=== PATIENT | male | born 1970 | race Caucasian/White ===

== ENCOUNTER 2025-03-18 06:10 | Observation (INO) | payer OTHER, SELFPAY ==
[2025-03-18 06:42] LABS: #Basophils 0.05 10x3/uL (0.0-0.2); #Eosinophils 0.50 10x3/uL (0.0-0.5); #Monocytes 1.29 10x3/uL (0.0-1.1); #Neutrophils 9.62 10x3/uL (1.5-8.4); %Basophils 0.4 % (0.0-2.0); %Eosinophils 3.7 % (0.0-6.0); %Lymphocytes 15.2 % (18.0-47.0); %Monocytes 9.5 % (0.0-10.0); %Neutrophils 70.8 % (40.0-75.0); Glucose, Urine (Dipstick) Normal (Negative); Hematocrit 43.2 % (38.8-50.0); Hemoglobin 14.5 g/dL (13.5-17.5); Leukocyte Negative (Negative); Mean Corpuscular Hemoglobin 29.2 pg (27.0-33.0); Mean Corpuscular Volume 86.9 fL (81.2-95.1); Platelet Count 263 10x3/uL (150-450); Protein, Urine (Dipstick) 15 mg/dl (Neg-Trace); Red Blood Cell (RBC) Count 4.97 10x6/uL (4.32-5.72); Specific Gravity, Urine 1.015 (1.005-1.030); White Blood Cell (WBC) Count 13.57 10x3/uL (3.5-10.5)
[2025-03-18 06:48] LABS: Bacteria/HPF None Seen HPF (None Seen); CAUTI Indications for Culture Dysuria,urgency,freq; RBC/HPF None Seen HPF (0-3); WBC/HPF 0-3 HPF (0-3)
[2025-03-18 06:49] LABS: Urine Culture Reflex No No
[2025-03-18 06:58] LABS: ALT (SGPT) 33 U/L (Less than 45); AST (SGOT) 30 U/L (11-34); Albumin 3.7 g/dL (3.1-4.5); Alkaline Phosphatase 88 U/L (40-110); Anion Gap 15 mmol/L (10-20); BUN (Urea Nitrogen) 15 mg/dL (8.4-25.7); Bilirubin, Total 0.5 mg/dL (0.3-1.2); Calc. Creatinine Clearance 0 mL/min (70-130); Calcium 8.5 mg/dL (7.8-10.44); Carbon Dioxide 23 mmol/L (22-29); Chloride 103 mmol/L (98-107); Globulin 4.3 g/dL (2.4-3.5); Glucose 123 mg/dL (70-105); Lipase 43 U/L (8-78); Potassium 4.4 mmol/L (3.5-5.1); Sodium 137 mmol/L (136-145)
[2025-03-18] MEDS ORDERED: Ondansetron PF 4 MG/2 ML Vial ONE (07:29)
[2025-03-18] MEDS ORDERED: Ondansetron PF 4 MG/2 ML Vial IVP PRN (10:28)
[2025-03-18] MEDS ORDERED: Electrolyte Replacement Protocol 1 EACH FS PRN (10:30)
[2025-03-18] MEDS ORDERED: Iopamidol 300 61% 100 ML VIAL FS ONE (13:18)
[2025-03-18 14:14] VITALS: BMI 31.9
[2025-03-18] MEDS: Acetaminophen 325 MG TAB PO PRN (15:08)
[2025-03-18] MEDS: Melatonin 3 MG TAB PO PRN (20:11)
[2025-03-19 05:00] LABS: #Basophils 0.04 10x3/uL (0.0-0.2); #Eosinophils 0.43 10x3/uL (0.0-0.5); #Monocytes 0.74 10x3/uL (0.0-1.1); #Neutrophils 5.83 10x3/uL (1.5-8.4); %Basophils 0.5 % (0.0-2.0); %Eosinophils 4.9 % (0.0-6.0); %Lymphocytes 19.3 % (18.0-47.0); %Monocytes 8.4 % (0.0-10.0); %Neutrophils 66.6 % (40.0-75.0); Hematocrit 37.9 % (38.8-50.0); Hemoglobin 12.8 g/dL (13.5-17.5); Mean Corpuscular Hemoglobin 29.8 pg (27.0-33.0); Mean Corpuscular Volume 88.3 fL (81.2-95.1); Platelet Count 260 10x3/uL (150-450); Red Blood Cell (RBC) Count 4.29 10x6/uL (4.32-5.72); White Blood Cell (WBC) Count 8.76 10x3/uL (3.5-10.5)
[2025-03-19 05:14] LABS: Anion Gap 13 mmol/L (10-20); BUN (Urea Nitrogen) 9 mg/dL (8.4-25.7); Calc. Creatinine Clearance 134 mL/min (70-130); Calcium 8.3 mg/dL (7.8-10.44); Carbon Dioxide 24 mmol/L (22-29); Chloride 105 mmol/L (98-107); Glucose 148 mg/dL (70-105); Magnesium 2.0 mg/dL (1.6-2.6); Potassium 4.0 mmol/L (3.5-5.1); Sodium 138 mmol/L (136-145)
[2025-03-19] MEDS: Enoxaparin 40 MG (0.4 mL) SYRINGE SC SCH (08:16)
[2025-03-19] MEDS: Magnesium 2 GM/50 ML(in water) 2 GM in Premix 1 BAG IVPB SCH (08:16)
[2025-03-19 12:47] VITALS: BP 120/73; TEMP 97.8
== END 2025-03-19 15:23 | disposition home or self-care (01) ==
LOC: SUATTDRO 06:10 → CSHERS 06:10 → CSHICU 09:18 → CSHTELE 14:10
PROVIDERS: ADMIT Internal Medicine; ATTEND Internal Medicine
DX: K57.92 Diverticulitis of intestine, part unspecified, without perforation or abscess without bleeding (principal); A41.9 Sepsis, unspecified organism; K21.9 Gastro-esophageal reflux disease without esophagitis; I10 Essential (primary) hypertension; Z79.899 Other long term (current) drug therapy
CPT/HCPCS: 36415; 74177; 80048; 80053; 81001; 83605; 83690; 83735; 84100; 85025; 87040; 96372; 96374; 96375; 96376; G0378; J1650; J2270; J2405; J2543; J3475; J7030; Q9967